=== PATIENT | male | born 1965 | race Asian ===

== ENCOUNTER 2024-07-31 11:09 | Outpatient (CLI) | payer BC, SELFPAY ==
--- NOTE | 2024-07-31 11:15 | CRLHL7_ITS ---
For Patients: As a result of the Cures Act, medical imaging exams and procedure reports are released immediately into your electronic medical record. You may view this report before your referring provider. If you have questions, please contact your health care provider. INDICATION: Hypertension TECHNIQUE: Grayscale, color Doppler and power Doppler evaluation of the kidneys and renal arteries performed. COMPARISON: None available FINDINGS: BILATERAL RENAL ARTERY DUPLEX ULTRASOUND ABDOMINAL AORTA: Peak systolic velocity = 75 cm/s. No aortic aneurysm. RIGHT KIDNEY: 10.1 cm in length. There is no hydronephrosis. Simple anechoic cyst measures 2.4 x 2.6 x 2.6 cm. Peak systolic velocity = 111 cm/second Renal artery to aortic peak systolic velocity ratio = 1.5 Resistive indices: 0.6-0.7 Renal vein = patent LEFT KIDNEY: 11.3 cm in length. There is no hydronephrosis. Peak systolic velocity = 128 cm/second Renal artery to aortic peak systolic velocity ratio = 1.7 Resistive indices: 0.5-0.8 Renal vein = patent IMPRESSION: No evidence of significant renal artery stenosis. Dictated by Armando Malave MD @ 08/01/2024 11:48:33 AM (Electronically Signed)
== END 2024-07-31 11:10 | disposition home or self-care (01) ==
LOC: US 11:14
PROVIDERS: PCP Student in an Organized Health Care Education/Training Program; Visit Provider Student in an Organized Health Care Education/Training Program
DX: I10 Essential (primary) hypertension (principal)
CPT/HCPCS: 76775; 93975